=== PATIENT | female | born 1970 | race Caucasian/White ===

== ENCOUNTER 2017-12-07 11:24 | Emergency (ER) | payer OTHER ==
[~2017-12-07] VITALS: Ht 160 cm; Wt 93.0 kg
--- NOTE | ~2017-12-07 | EKG ---
[place] [address] [facility] [place] [address] ELECTROCARDIOGRAM REPORT Name: SAHRA VINCENT Room #: [facility]#: [id number] Admission: 12/07/17 Attend Phys: Discharge: 12/07/17 Date of : 68 Report #: [id number] THIS REPORT FOR: //name// [facility] ED Test Date: 2017-12-07 Test Time: 12:17:31 Pat Name: SAHRA VINCENT Department: Room: Gender: F [employer]: ERROL : 1970 Requested By: Meaghan Ruffin Order Number: [id number] MD: Micha Howe Measurements Intervals [place] Rate: 72 P: 47 SC: 147 QRS: 54 QRSD: 98 T: 8 QT: 405 QTc: 444 Interpretive Statements Sinus rhythm RSR' in V1 or V2, right VCD or RVH Nonspecific T abnormalities Compared to ECG 02/20/2016 11:22:20 No significant change was found Electronically Signed On 12-07-2017 19:28:41 CDT by Micha Howe [email or web address] <ELECTRONICALLY SIGNED> By: Micha Howe MD, [facility] [id number] Micha Howe MD, [facility] /EPI
[~2017-12-07 11:24] MED LIST: ATIVAN0.5 MG; ATIVAN1 MG PO; BACTRIM DS TAB1 EACH PO; CELEXA20 MG PO; KEFLEX500 MG PO; LIPITOR10 MG; NORCO 5-325 TA1 EACH PO; PREMARIN 0.3MG0.3 MG
[2017-12-07 11:51] LABS: URINE BILIRUBIN NEGATIVE (Negative); URINE BLOOD NEGATIVE (Negative); URINE CLARITY CLEAR; URINE COLOR YELLOW; URINE GLUCOSE-RANDOM* NEGATIVE (Negative); URINE KETONES NEGATIVE (Negative); URINE LEUKOCYTES NEGATIVE (Negative); URINE NITRITE NEGATIVE (Negative); URINE PROTEIN (DIPSTICK) NEGATIVE (Negative); URINE SPECIFIC GRAVITY 1.015 (1.005-1.035); URINE UROBILINOGEN 0.2 E.U./dl (0.2-1.0)
[2017-12-07 12:12] LABS: ABSOLUTE NEUTROPHILS 3.7 thou/uL (1.4-8.2); BASOPHILS 0.5 % (0.0-2.0); EOSINOPHILS 2.5 % (0.0-3.0); HEMATOCRIT 41.9 % (37.0-47.0); HEMOGLOBIN 14.3 gm/dL (12.0-15.0); LYMPHOCYTES 37.6 % (24.0-44.0); MCH 29.2 pg (26.0-34.0); MCHC 34.2 g/dL (28.0-37.0); MCV 85.4 fL (80.0-100.0); MONOCYTES 7.2 % (1.0-8.0); PLATELET COUNT 251 thou/uL (150-400); POLYS 52.2 % (36.0-66.0); RDW 12.5 % (10.5-14.5)
[2017-12-07 12:24] LABS: ANION GAP 9 mmol/L (7-16); BUN 13 mg/dL (7-18); CALCIUM 9.3 mg/dL (8.5-10.1); CHLORIDE 104 mmol/L (98-107); CO2 25 mmol/L (21-32); CREATININE 0.7 mg/dL (0.6-1.0); GLUCOSE 96 mg/dL (74-106); POTASSIUM 4.2 mmol/L (3.5-5.1); SODIUM 138 mmol/L (136-145)
[2017-12-07 12:29] LABS: ALBUMIN 3.5 g/dL (3.4-5.0); LIPASE 106 U/L (73-393); SGOT 20 U/L (15-37); SGPT 27 U/L (30-65); TOTAL BILIRUBIN 0.3 mg/dL (<0.1-1.0); TOTAL PROTEIN 7.1 g/dL (6.4-8.2); TROPONIN-I < 0.04 ng/mL (<0.06)
[2017-12-07] MEDS ORDERED: IBUPROFEN 800800 M1 PO (13:36)
[2017-12-07 15:01] VITALS: BP 105/65
== END 2017-12-07 14:50 | disposition home or self-care (01) ==
LOC: ER 11:24
PROVIDERS: Nurse Practitioner Family
DX: R09.1 Pleurisy (principal); E78.5 Hyperlipidemia, unspecified; F17.210 Nicotine dependence, cigarettes, uncomplicated